=== PATIENT | female | born 1985 | race Caucasian/White ===

== ENCOUNTER → 2016-07-08 | Outpatient (CLI) | payer OTHER ==
[2016-07-08 07:35] LABS: HEMATOCRIT 38.2 % (37.0-47.0); HEMOGLOBIN 12.8 g/dl (12.0-16.0); MEAN CELL VOLUME 88.4 fl (81.0-99.0); MEAN CORPUSCULAR HGB 29.6 pg (27.0-31.0); MEAN CORPUSCULAR HGB CONC 33.5 g/dl (33.0-37.0); PLATELET COUNT AUTOMATED 311 10*3/uL (130-400); RED BLOOD COUNT 4.32 10*6/uL (4.10-5.10); RED CELL DISTRI WIDTH 12.4 % (0-14.5)
[2016-07-08 08:02] LABS: ALBUMIN 2.9 gm/dl (3.1-4.5); ALKALINE PHOSPHATASE 59 U/L (45-117); BILIRUBIN, TOTAL 0.3 mg/dl (0.2-1.0); BUN 10 mg/dl (7-24); CARBON DIOXIDE 25 mmol/L (21-32); CHLORIDE 108 mmol/L (98-107); CHOLESTEROL 186 mg/dL (<200); EST GLOM FILT AFRICAN AMERICAN > 60 ml/min; GLUCOSE 88 mg/dL (65-99); HDL CHOLESTEROL 91 mg/dl (40-60); LDL CHOLESTEROL 55 mg/dL (9-159); POTASSIUM 3.8 mmol/L (3.5-5.1); SGOT/AST 13 IU/L (3-35); SGPT/ALT 22 U/L (12-78); SODIUM 143 mmol/L (136-145); TOTAL PROTEIN 6.6 gm/dL (6.4-8.2); TRIGLYCERIDES 198 mg/dl (<150); VLDL CHOLESTEROL 40 mg/dL (6-40)
[2016-07-08 08:18] LABS: BASOPHIL # 0.1 10*3/uL (0-0.1); BASOPHILS 1 % (0-1); EOSINOPHIL # 0.2 10*3/uL (0-0.4); EOSINOPHILS 2 % (1-4); LYMPHOCYTE # 5.7 10*3/uL (1.3-4.4); MONOCYTE # 0.7 10*3/uL (0.1-1.0); NEUTROPHIL # 4.3 10*3/uL (2.3-7.9); NEUTROPHILS 39 % (47-73); TOTAL CELLS COUNTED 100 #CELLS
[2016-07-08 08:19] LABS: PLATELET SUFFICIENCY NORMAL (NORMAL)
== END | disposition home or self-care (01) ==
LOC: LAB 07:07
PROVIDERS: Nurse Practitioner Family
DX: G43.109 Migraine with aura, not intractable, without status migrainosus (principal); M16.11 Unilateral primary osteoarthritis, right hip; R53.83 Other fatigue; M25.551 Pain in right hip

== ENCOUNTER → 2016-07-10 | Outpatient (CLI) | payer OTHER ==
[2016-07-10 22:53] LABS: PTH INTACT 35.6 pg/mL (14.0-72.0); VITAMIN D, 25-HYDROXY 20.8 ng/mL (30-100)
== END ==
LOC: LAB 21:46
PROVIDERS: Nurse Practitioner Family
DX: E83.51 Hypocalcemia (principal)

== ENCOUNTER 2016-10-31 13:55 | Emergency (ER) | payer OTHER ==
[~2016-10-31] VITALS: Wt 117.9 kg
[2016-10-31] MEDS ORDERED: MELOXICAM15 MG PO (14:08)
[2016-10-31] MEDS ORDERED: PROPRANOLOL HCL60 M1 PO (14:08)
[2016-10-31 14:52] LABS: INTERNATIONAL NORM RATIO 0.9 (2.0-3.5); PROTHROMBIN TIME 9.6 SECONDS (9.0-12.4)
[2016-10-31 14:57] LABS: ALBUMIN 3.3 gm/dl (3.1-4.5); ALKALINE PHOSPHATASE 63 U/L (45-117); BILIRUBIN, TOTAL 0.4 mg/dl (0.2-1.0); BUN 9 mg/dl (7-24); C-REACTIVE PROTEIN 0.85 MG/DL (0-0.3); CARBON DIOXIDE 25 mmol/L (21-32); CHLORIDE 109 mmol/L (98-107); CPK 63 U/L (26-192); EST GLOM FILT AFRICAN AMERICAN > 60 ml/min; GLUCOSE 95 mg/dL (65-99); MAGNESIUM 2.2 mg/dL (1.5-2.1); POTASSIUM 4.3 mmol/L (3.5-5.1); SGOT/AST 15 IU/L (3-35); SGPT/ALT 26 U/L (12-78); SODIUM 143 mmol/L (136-145)
[2016-10-31 14:58] LABS: CKMB < 0.5 ng/ml (0.5-3.6); TROPONIN I < 0.015 ng/ml (<0.045)
[2016-10-31 14:58] LABS: BASO # 0.1 10*3/uL (0.0-0.1); EOS # 0.1 10*3/uL (0.0-0.4); EOS % 1.2 % (1.0-4.0); HEMATOCRIT 38.7 % (37.0-47.0); HEMOGLOBIN 12.8 g/dl (12.0-16.0); LYMPH # 3.5 10*3/uL (1.3-4.4); LYMPH % 39.4 % (27.0-41.0); MEAN CELL VOLUME 88.4 fl (81.0-99.0); MEAN CORPUSCULAR HGB 29.2 pg (27.0-31.0); MEAN CORPUSCULAR HGB CONC 33.1 g/dl (33.0-37.0); MEAN PLATELET VOLUME 10.2 fl (9.6-12.3); MONO # 0.6 10*3/uL (0.1-1.0); MONO % 6.4 % (3.0-9.0); NEUT # 4.6 10*3/uL (2.3-7.9); NEUT % 51.7 % (47.0-73.0); PLATELET COUNT AUTOMATED 319 10*3/uL (130-400); RED BLOOD COUNT 4.38 10*6/uL (4.10-5.10); RED CELL DISTRI WIDTH 12.2 % (0-14.5); WHITE BLOOD COUNT 8.9 10*3/uL (4.8-10.8)
[2016-10-31 15:18] LABS: BILIRUBIN NEGATIVE (NEGATIVE); BLOOD TRACE-INTACT (NEGATIVE); CLARITY CLEAR (CLEAR); COLOR YELLOW (YELLOW); GLUCOSE NEGATIVE (NEGATIVE); KETONE NEGATIVE (NEGATIVE); LEUKO ESTERASE NEGATIVE (NEGATIVE); NITRITE NEGATIVE (NEGATIVE); PH 6.5 (5.0-9.0); PROTEIN NEGATIVE (NEGATIVE); UROBILINOGEN 0.2 E.U./dl (0.2-1.0)
[2016-10-31 15:25] LABS: BACTERIA TRACE; EPITHELIAL CELLS 0-2
[2016-10-31 15:26] LABS: URINE REFLEX COMMENT NO (NO); WBC 0-2 wbc/hpf (0-5)
[2016-10-31] MEDS ORDERED: PROTONIX40 MG PO ×2 (15:38→15:39)
== END 2016-10-31 15:39 | disposition home or self-care (01) ==
LOC: ED 13:55
PROVIDERS: Emergency Medicine
DX: K29.00 Acute gastritis without bleeding (principal); Z79.899 Other long term (current) drug therapy

== ENCOUNTER → 2016-11-29 | Outpatient (CLI) | payer OTHER ==
[~2016-11-29] MED LIST: MELOXICAM15 MG PO; PROPRANOLOL HCL60 M1 PO; PROTONIX40 MG PO
== END | disposition home or self-care (01) ==
LOC: US 10:32
DX: R10.11 Right upper quadrant pain (principal)

== ENCOUNTER → 2016-12-18 | Outpatient (CLI) | payer OTHER | END | disposition home or self-care (01) | LOC: NM 00:26 | DX: R11.0 Nausea (principal); R10.11 Right upper quadrant pain; R10.13 Epigastric pain ==

== ENCOUNTER → 2017-02-03 | Outpatient (CLI) | payer OTHER | END | disposition home or self-care (01) | LOC: RAD 10:01 | DX: K59.00 Constipation, unspecified (principal); R19.7 Diarrhea, unspecified; R11.0 Nausea; Z90.49 Acquired absence of other specified parts of digestive tract ==

== ENCOUNTER 2018-01-05 12:43 | Emergency (ER) | payer OTHER ==
[~2018-01-05] VITALS: Ht 160 cm; Wt 78.5 kg
[2018-01-05] MEDS ORDERED: PREDNISONE20 M1 PO (13:04)
[2018-01-05] MEDS ORDERED: LIDEX 0.05% CRE15 GM T (13:04)
[2018-01-05 14:56] LABS: BILIRUBIN NEGATIVE (NEGATIVE); BLOOD TRACE-INTACT (NEGATIVE); CLARITY CLEAR (CLEAR); COLOR YELLOW (YELLOW); GLUCOSE NEGATIVE (NEGATIVE); KETONE 1+ (NEGATIVE); LEUKO ESTERASE NEGATIVE (NEGATIVE); NITRITE NEGATIVE (NEGATIVE)
[2018-01-05 15:26] LABS: BACTERIA TRACE
[2018-01-05] MEDS ORDERED: MEDROL DOSEPAK4 MG PO (18:44)
[2018-01-05] MEDS ORDERED: NAPROSYN500 MG PO (18:44)
[2018-01-05] MEDS ORDERED: CYCLOBENZAPRINE10 MG PO (18:44)
== END 2018-01-05 16:08 | disposition home or self-care (01) ==
LOC: ED 12:43
PROVIDERS: Nurse Practitioner Family
DX: M54.5 Low back pain (principal); Z79.899 Other long term (current) drug therapy

== ENCOUNTER → 2020-01-02 | Outpatient (CLI) | payer BC ==
[~2020-01-02] MED LIST changes: +CYCLOBENZAPRINE10 MG PO; +LIDEX 0.05% CRE15 GM T; +MEDROL DOSEPAK4 MG PO; +NAPROSYN500 MG PO; +PREDNISONE20 M1 PO
== END | disposition home or self-care (01) ==
LOC: CARD 16:30
DX: R06.02 Shortness of breath (principal); R06.2 Wheezing

== ENCOUNTER → 2020-05-16 | Outpatient (CLI) | payer BC | END | disposition home or self-care (01) | LOC: COVID19 11:12 | PROVIDERS: ATTEND Nurse Practitioner Family | DX: U07.1 COVID-19 (principal) ==

== ENCOUNTER → 2021-01-26 | Outpatient (CLI) | payer BC ==
[2021-01-26 10:11] LABS: BASO # 0.1 10*3/uL (0.0-0.1); BASO % 0.9 % (0.0-1.0); EOS # 0.1 10*3/uL (0.0-0.4); EOS % 1.5 % (1.0-4.0); LYMPH # 3.8 10*3/uL (1.3-4.4); LYMPH % 42.6 % (27.0-41.0); MEAN CELL VOLUME 91.3 fl (81.0-99.0); MEAN CORPUSCULAR HGB CONC 32.8 g/dl (33.0-37.0); MEAN PLATELET VOLUME 9.4 fl (9.6-12.3); MONO # 0.5 10*3/uL (0.1-1.0); MONO % 5.6 % (3.0-9.0); NEUT # 4.4 10*3/uL (2.3-7.9); NEUT % 49.1 % (47.0-73.0); PLATELET COUNT AUTOMATED 320 10*3/uL (130-400); RED BLOOD COUNT 4.27 10*6/uL (4.10-5.10); RED CELL DISTRI WIDTH 11.9 % (0-14.5); WHITE BLOOD COUNT 8.9 10*3/uL (4.8-10.8)
[2021-01-26 10:31] LABS: ALBUMIN 3.2 gm/dl (3.1-4.5); BUN 11 mg/dl (7-24); CHLORIDE 106 mmol/L (98-107); CHOLESTEROL 197 mg/dL (<200); CREATININE 0.78 mg/dL (0.55-1.02); LDL CHOLESTEROL 63 mg/dL (9-159); SGOT/AST 14 IU/L (3-35); SGPT/ALT 24 U/L (12-78); SODIUM 135 mmol/L (136-145); TRIGLYCERIDES 99 mg/dl (<150)
[2021-01-26 10:40] LABS: ALKALINE PHOSPHATASE 60 U/L (45-117)
== END | disposition home or self-care (01) ==
LOC: LAB 09:44
PROVIDERS: ATTEND Family Medicine
DX: R53.83 Other fatigue (principal)

== ENCOUNTER → 2021-03-27 | Outpatient (CLI) | payer BC ==
[2021-03-27 17:21] LABS: HEMATOCRIT 40.9 % (37.0-47.0); MEAN CELL VOLUME 91.1 fl (81.0-99.0); MEAN CORPUSCULAR HGB 29.8 pg (27.0-31.0); MEAN CORPUSCULAR HGB CONC 32.8 g/dl (33.0-37.0); MEAN PLATELET VOLUME 9.2 fl (9.6-12.3); RED BLOOD COUNT 4.49 10*6/uL (4.10-5.10); RED CELL DISTRI WIDTH 12.2 % (0-14.5); WHITE BLOOD COUNT 9.8 10*3/uL (4.8-10.8)
== END | disposition home or self-care (01) ==
LOC: LAB 16:45
PROVIDERS: ATTEND Nurse Practitioner Family
DX: R16.1 Splenomegaly, not elsewhere classified (principal)